=== PATIENT | male | born 1980 | race Caucasian/White ===

== ENCOUNTER → 2018-10-10 | Outpatient (CLI) | payer OTHER ==
[~2018-10-10] MED LIST: NOHOMEMEDICATIONS; NORCO 5-325 TA1 EACH PO; OCUFLOX10 ML OP
== END ==
LOC: M.ULTRA 07:14
DX: R94.5 Abnormal results of liver function studies (principal)

== ENCOUNTER → 2019-08-20 | Outpatient (CLI) | payer OTHER | LOC: M.ULTRA 09:00 | DX: K76.0 Fatty (change of) liver, not elsewhere classified (principal); R16.0 Hepatomegaly, not elsewhere classified ==